=== PATIENT | male | born 1965 | race African-American/Black ===

== ENCOUNTER 2018-07-05 16:47 | Inpatient (IN) | payer MEDICAID ==
[~2018-07-05] VITALS: Ht 185.4 cm; Wt 56.9 kg
[2018-07-05] MEDS ORDERED: SODIUM CHLORIDE 0.9% 1,000 ML IV ONE ×3 (17:38→19:45)
[2018-07-05 17:58] LABS: BG BASE EXCESS 0.4 mmol/L (-2.0-2.0); BG CARBOXYHEMOGLOBIN 5.6 % (0.5-1.5); BG DEOXYHEMOGLOBIN 3.3 % (0.0-5.0); BG FRACTION INSPIRED OXYGEN 21; BG HCO3 ACT 24.2 mmol/L (22.0-26.0); BG METHEMOGLOBIN 0.2 % (0.0-1.5); BG OXYGEN SATURATION 96.5 % (92.0-98.5); BG OXYHEMOGLOBIN 90.9 % (94.0-97.0); BG PCO2 36.6 mmHg (35.0-45.0); BG PH 7.438 (7.350-7.450); BG PO2 82.3 mmHg (75.0-100.0); BG SAMPLE SITE RIGHT BRACHIAL; BG TOTAL HEMOGLOBIN 15.4 g/dL (12.0-18.0); BG VENT MODE ROOM AIR
[2018-07-05] MEDS ORDERED: ASPIRIN 81MG TABLET PO ONE (18:30)
[2018-07-05] MEDS ORDERED: KETOROLAC 15MG/ML VIAL IV ONE (18:30)
[2018-07-05 19:14] LABS: BASOPHILS % 0.5 % (0.0-2.0); EOSINOPHILS % 1.4 % (0.0-5.0); HEMATOCRIT. 43.4 % (42.0-52.0); HEMOGLOBIN. 14.9 g/dL (14.0-18.0); LYMPHOCYTES % 30.5 % (20.0-50.0); MEAN CORPUSCULAR HEMOGLOBIN 31.4 pg (28.0-32.0); MEAN CORPUSCULAR VOLUME 91.4 fL (80.0-94.0); MEAN PLATELET VOLUME 8.6 fl (7.4-10.4); MONOCYTES % 7.5 % (2.0-8.0); NEUTROPHILS % 60.1 % (40.0-76.0); PLATELET 298 x1000/uL (130-400); RED BLOOD CELL COUNT 4.75 mill/uL (4.7-6.1); RED CELL DISTRIBUTION WIDTH 14.2 % (11.6-14.6)
[2018-07-05 19:20] LABS: CHLORIDE 95 mEq/L (98-107)
[2018-07-05 19:22] LABS: INR 1.1; PROTHROMBIN TIME 11.1 sec (9.1-11.1)
[2018-07-05 19:24] LABS: ETHANOL BLOOD < 10 mg/dL
[2018-07-05 19:24] LABS: CLARITY URINE CLEAR (CLEAR); COLOR URINE YELLOW (YELLOW); KETONES URINE NEGATIVE (NEGATIVE); LEUKOCYTE ESTERASE URINE NEGATIVE (NEGATIVE); NITRITE URINE NEGATIVE (NEGATIVE); OCCULT BLOOD URINE NEGATIVE (NEGATIVE); PROTEIN URINE NEGATIVE (NEGATIVE); SPECIFIC GRAVITY URINE 1.037 (1.005-1.030); UROBILINOGEN URINE 0.2 E.U./dL (0.2-1.0)
[2018-07-05 19:25] LABS: PHOSPHORUS 3.8 mg/dL (2.5-4.9)
[2018-07-05 19:29] LABS: CREATINE KINASE 43 IU/L (39-308); CREATINE KINASE MB FRACTION < 1.0 ng/mL (0.5-3.6)
[2018-07-05 19:30] LABS: BETA HYDROXYBUTYRATE 0.2 mMol/L (0.0-0.3)
[2018-07-05 19:51] LABS: *AMPHETAMINES SCREEN URINE NEGATIVE (NEGATIVE); *BARBITURATES SCREEN URINE NEGATIVE (NEGATIVE)
[2018-07-05 19:52] LABS: *BENZODIAZEPINES SCREEN URINE NEGATIVE (NEGATIVE); *COCAINE SCREEN URINE NEGATIVE (NEGATIVE); CANNABINOID URINE SCREEN NEGATIVE (NEGATIVE); METHADONE URINE SCREEN NEGATIVE (NEGATIVE); OPIATES URINE SCREEN NEGATIVE (NEGATIVE); PHENCYCLIDINE URINE SCREEN NEGATIVE (NEGATIVE)
[2018-07-05] MEDS ORDERED: INSULIN REGULAR (HUMULIN R) 300UNITS/3ML SUBCUT ONE (20:15)
[2018-07-05] MEDS ORDERED: DOCUSATE SODIUM 100MG CAPSULE PO PRN (21:00)
[2018-07-05] MEDS ORDERED: ONDANSETRON HCL 4MG/2ML INJ IV PRN (21:00)
[2018-07-05] MEDS ORDERED: ACETAMINOPHEN 325MG TABLET PO PRN (21:00)
[2018-07-05] MEDS ORDERED: MAGNESIUM/ALUMINUM HYDROXIDE/SIMETHICONE 30ML UDC PO PRN (21:00)
[2018-07-05] MEDS ORDERED: HYDROCODONE/ACETAMINOPHEN 5/325MG TABLET PO PRN (21:00)
[2018-07-05] MEDS ORDERED: CLONIDINE 0.1MG TABLET PO PRN (21:00)
[2018-07-05 22:05] VITALS: BP 128/80
[2018-07-05] MEDS ORDERED: DEXTROSE 50% WATER 50ML SYRINGE IV PRN ×2 (22:30→22:45)
[2018-07-05] MEDS: BLOOD SUGAR DIAGNOSTIC STRIP TEST SCH (22:54)
[2018-07-05] MEDS ORDERED: INSULIN GLARGINE UD 100 UNITS/ML SYR SUBCUT SCH (23:00)
[2018-07-05] MEDS: SODIUM CHLORIDE 0.9% 1,000 ML IV SCH (23:03)
[2018-07-05] MEDS: INSULIN LISPRO 100 UNITS/ML SUBCUT SCH (23:04)
[2018-07-05 23:29] VITALS: BP 130/80
[2018-07-06] VITALS: BP 101/67
[2018-07-06] MEDS ORDERED: ALBU05 IH (00:44)
[2018-07-06] MEDS ORDERED: METF-416 MT (00:44)
[2018-07-06] MEDS ORDERED: LEVVL SQ (00:44)
[2018-07-06 01:24] LABS: CHLORIDE 109 mEq/L (98-107)
[2018-07-06 04:00] VITALS: BP 111/57
[2018-07-06] MEDS: INSULIN LISPRO 100 UNITS/ML SUBCUT SCH ×7 (05:50→20:22)
[2018-07-06] MEDS: BLOOD SUGAR DIAGNOSTIC STRIP TEST SCH ×4 (05:50→20:02)
[2018-07-06] MEDS ORDERED: POTASSIUM CHLORIDE 20MEQ TABLET SR PO NR (06:45)
[2018-07-06] MEDS: SODIUM CHLORIDE 0.9% 1,000 ML IV SCH ×2 (06:48→17:59)
[2018-07-06 06:57] LABS: BASOPHILS % 0.4 % (0.0-2.0); EOSINOPHILS % 2.1 % (0.0-5.0); HEMATOCRIT. 38.8 % (42.0-52.0); HEMOGLOBIN. 13.1 g/dL (14.0-18.0); LYMPHOCYTES % 29.5 % (20.0-50.0); MEAN CORPUSCULAR HEMOGLOBIN 30.7 pg (28.0-32.0); MEAN CORPUSCULAR VOLUME 90.8 fL (80.0-94.0); MEAN PLATELET VOLUME 8.3 fl (7.4-10.4); MONOCYTES % 7.2 % (2.0-8.0); NEUTROPHILS % 60.8 % (40.0-76.0); PLATELET 277 x1000/uL (130-400); RED BLOOD CELL COUNT 4.28 mill/uL (4.7-6.1)
[2018-07-06 07:20] LABS: LDL CHOLESTEROL 87 mg/dL (5-100)
[2018-07-06 07:22] LABS: HDL CHOLESTEROL 38 mg/dL (40-59)
[2018-07-06 08:00] VITALS: BP 112/76
[2018-07-06] MEDS ORDERED: MAGNESIUM 1 G PREMIX 100 ML IV NR (08:00)
[2018-07-06] MEDS: IPRATROPIUM/ALBUTEROL 0.5-3(2.5)MG/3ML NEB INH PRN ×2 (08:12→14:19)
[2018-07-06] MEDS: ASPIRIN 81MG EC TABLET PO SCH (09:03)
[2018-07-06] MEDS: ENOXAPARIN 40MG/0.4ML SYR SUBCUT SCH (09:03)
[2018-07-06 12:00] VITALS: BP 112/80
[2018-07-06] MEDS: BUDESONIDE 0.5MG/2ML NEB HHN SCH (14:09)
[2018-07-06 16:00] VITALS: BP 117/58
[2018-07-06 20:00] VITALS: BP 110/58
[2018-07-06] MEDS ORDERED: INSULIN GLARGINE UD 100 UNITS/ML SYR SUBCUT SCH (23:30)
[2018-07-07] VITALS: BP 112/60
[2018-07-07 04:00] VITALS: BP 125/70
[2018-07-07] MEDS: SODIUM CHLORIDE 0.9% 1,000 ML IV SCH ×2 (05:59→12:57)
[2018-07-07] MEDS: BLOOD SUGAR DIAGNOSTIC STRIP TEST SCH ×2 (06:06→12:27)
[2018-07-07] MEDS: INSULIN LISPRO 100 UNITS/ML SUBCUT SCH ×4 (06:23→12:56)
[2018-07-07 07:34] LABS: BASOPHILS % 0.4 % (0.0-2.0); EOSINOPHILS % 2.4 % (0.0-5.0); HEMATOCRIT. 38.6 % (42.0-52.0); LYMPHOCYTES % 27.5 % (20.0-50.0); MEAN PLATELET VOLUME 8.4 fl (7.4-10.4); MONOCYTES % 7.2 % (2.0-8.0); NEUTROPHILS % 62.5 % (40.0-76.0); PLATELET 270 x1000/uL (130-400); RED CELL DISTRIBUTION WIDTH 14.8 % (11.6-14.6)
[2018-07-07 07:47] LABS: CHLORIDE 108 mEq/L (98-107)
[2018-07-07 08:00] VITALS: BP 111/76
[2018-07-07] MEDS: BUDESONIDE 0.5MG/2ML NEB HHN SCH (08:35)
[2018-07-07] MEDS: ENOXAPARIN 40MG/0.4ML SYR SUBCUT SCH (09:25)
[2018-07-07] MEDS: ASPIRIN 81MG EC TABLET PO SCH (09:25)
[2018-07-07 12:00] VITALS: BP_SYST 123; BP_SYST 124; BP_DIAS 86; BP_DIAS 90
== END 2018-07-07 13:35 | disposition home or self-care (01) | DRG 48 ==
LOC: ER 16:47 → 5WST 20:34 → EDBEDREQ 20:35 → EDBEDREQTM 20:35 → ENRESERV 20:38
PROVIDERS: ADMIT Internal Medicine; ATTEND Internal Medicine
DX: G90.8 Other disorders of autonomic nervous system (principal); E44.0 Moderate protein-calorie malnutrition; E87.8 Other disorders of electrolyte and fluid balance, not elsewhere classified; E11.65 Type 2 diabetes mellitus with hyperglycemia; E87.1 Hypo-osmolality and hyponatremia; F03.90 Unspecified dementia, unspecified severity, without behavioral disturbance, psychotic disturbance, mood disturbance, and anxiety; M94.0 Chondrocostal junction syndrome [Tietze]; F17.210 Nicotine dependence, cigarettes, uncomplicated; R74.0 Nonspecific elevation of levels of transaminase and lactic acid dehydrogenase [LDH]; I10 Essential (primary) hypertension; I49.3 Ventricular premature depolarization; J44.9 Chronic obstructive pulmonary disease, unspecified; Z68.1 Body mass index [BMI] 19.9 or less, adult; Z71.6 Tobacco abuse counseling
CPT/HCPCS: 36415; 36600; 71045; 80048; 80061; 80305; 82010; 82375; 82550; 82553; 82805; 82962; 83036; 83735; 83880; 84100; 84443; 84484; 93005; 93306; 93970; 94640; 96361; 96374; 99291; G0482; J1650; J1815; J1885; J3475; J7030; J7620; J7626

== ENCOUNTER 2019-01-21 11:25 | Emergency (ER) | payer MEDICAID ==
[~2019-01-21] VITALS: Ht 185.4 cm; Wt 65.0 kg
[~2019-01-21 11:25] MED LIST: ALBU05 IH; METF-416 MT
[2019-01-21] MEDS ORDERED: SODIUM CHLORIDE 0.9% 1,000 ML IV ONE ×2 (11:32→13:15)
[2019-01-21 12:04] LABS: BASOPHILS % 0.9 % (0.0-2.0); EOSINOPHILS % 2.4 % (0.0-5.0); HEMATOCRIT. 45.8 % (42.0-52.0); HEMOGLOBIN. 15.7 g/dL (14.0-18.0); LYMPHOCYTES % 25.7 % (20.0-50.0); MEAN CORPUSCULAR HEMOGLOBIN 31.6 pg (28.0-32.0); MEAN CORPUSCULAR VOLUME 92.3 fL (80.0-94.0); MEAN PLATELET VOLUME 8.2 fl (7.4-10.4); MONOCYTES % 6.3 % (2.0-8.0); NEUTROPHILS % 64.7 % (40.0-76.0); PLATELET 222 x1000/uL (130-400); RED BLOOD CELL COUNT 4.96 mill/uL (4.7-6.1); RED CELL DISTRIBUTION WIDTH 13.9 % (11.6-14.6)
[2019-01-21 12:12] LABS: CHLORIDE 105 mEq/L (98-107); INR 1.1; PROTHROMBIN TIME 11.3 sec (9.6-11.0)
[2019-01-21] MEDS ORDERED: INSULIN REGULAR (HUMULIN R) 300UNITS/3ML SUBCUT ONE (13:15)
[2019-01-21] MEDS ORDERED: SODIUM CHLORIDE 0.9% 1,000 ML IV NR (14:45)
[2019-01-21 16:03] VITALS: BP 120/72
== END 2019-01-21 16:28 | disposition home or self-care (01) ==
LOC: ER 11:57
DX: E11.65 Type 2 diabetes mellitus with hyperglycemia (principal); E88.09 Other disorders of plasma-protein metabolism, not elsewhere classified; I95.9 Hypotension, unspecified; E86.0 Dehydration; R74.0 Nonspecific elevation of levels of transaminase and lactic acid dehydrogenase [LDH]; R07.9 Chest pain, unspecified; E46 Unspecified protein-calorie malnutrition; J45.909 Unspecified asthma, uncomplicated; Z79.899 Other long term (current) drug therapy
CPT/HCPCS: 36415; 80053; 82962; 83690; 84484; 85025; 85610; 93005; 96360; 96361; 96372; 99284; J1815; J7030

== ENCOUNTER 2020-08-02 15:36 | Emergency (ER) | payer MEDICAID ==
[~2020-08-02] VITALS: Ht 175.3 cm; Wt 61.0 kg
[2020-08-02] MEDS ORDERED: INSULIN REGULAR (HUMULIN R) 300UNITS/3ML VIAL IV ONE (16:30)
[2020-08-02] MEDS ORDERED: MECLIZINE 12.5MG TABLET PO ONE (16:30)
[2020-08-02] MEDS ORDERED: SODIUM CHLORIDE 0.9% 1,000 ML IV ONE ×2 (16:30→18:00)
[2020-08-02 17:00] LABS: BASOPHILS % 0.5 % (0.0-2.0); EOSINOPHILS % 0.4 % (0.0-5.0); HEMATOCRIT. 48.3 % (42.0-52.0); HEMOGLOBIN. 15.7 g/dL (14.0-18.0); LYMPHOCYTES % 15.7 % (20.0-50.0); MEAN CORPUSCULAR HEMOGLOBIN 28.9 pg (28.0-32.0); MEAN CORPUSCULAR VOLUME 88.8 fL (80.0-94.0); MEAN PLATELET VOLUME 7.8 fl (7.4-10.4); MONOCYTES % 5.5 % (2.0-8.0); NEUTROPHILS % 77.9 % (40.0-76.0); PLATELET 319 x1000/uL (130-400); RED BLOOD CELL COUNT 5.43 mill/uL (4.7-6.1); RED CELL DISTRIBUTION WIDTH 13.5 % (11.6-14.6)
[2020-08-02 17:01] LABS: CHLORIDE 100 mEq/L (98-107)
[2020-08-02 17:09] LABS: BETA HYDROXYBUTYRATE 0.3 mMol/L (0.0-0.3)
[2020-08-02 20:12] VITALS: BP 105/75
== END 2020-08-02 20:40 | disposition home or self-care (01) ==
LOC: ER 15:36
DX: E11.65 Type 2 diabetes mellitus with hyperglycemia (principal); E86.0 Dehydration; I10 Essential (primary) hypertension; J45.909 Unspecified asthma, uncomplicated; Z79.84 Long term (current) use of oral hypoglycemic drugs
CPT/HCPCS: 36415; 71045; 80053; 82010; 82962; 84484; 85025; 96374; 99284; J1815; J7030; J8597

== ENCOUNTER 2021-03-29 20:51 | Inpatient (IN) | payer MEDICAID, OTHER ==
[~2021-03-29] VITALS: Ht 175.3 cm; Wt 68.0 kg
[2021-03-29] MEDS ORDERED: ASPIRIN 81MG TABLET PO ONE (21:15)
[2021-03-29 21:36] LABS: BASOPHILS % 0.4 % (0.0-2.0); EOSINOPHILS % 4.4 % (0.0-5.0); HEMATOCRIT. 32.3 % (42.0-52.0); HEMOGLOBIN. 10.9 g/dL (14.0-18.0); LYMPHOCYTES % 26.1 % (20.0-50.0); MEAN CORPUSCULAR HEMOGLOBIN 29.6 pg (28.0-32.0); MEAN CORPUSCULAR VOLUME 87.5 fL (80.0-94.0); MEAN PLATELET VOLUME 7.9 fl (7.4-10.4); MONOCYTES % 8.6 % (2.0-8.0); NEUTROPHILS % 60.5 % (40.0-76.0); PLATELET 291 x1000/uL (130-400); RED BLOOD CELL COUNT 3.69 mill/uL (4.7-6.1); RED CELL DISTRIBUTION WIDTH 14.4 % (11.6-14.6)
[2021-03-29 21:42] LABS: CHLORIDE 100 mEq/L (98-107)
[2021-03-29] MEDS ORDERED: SODIUM CHLORIDE 0.9% 1,000 ML IV ONE ×2 (22:30)
[2021-03-29] MEDS ORDERED: INSULIN REGULAR (HUMULIN R) 300UNITS/3ML VIAL SUBCUT ONE (22:30)
[2021-03-30] MEDS ORDERED: DEXTROSE 50% WATER 50ML SYRINGE IV PRN (04:45)
[2021-03-30] MEDS: BLOOD SUGAR DIAGNOSTIC STRIP TEST SCH ×4 (05:07→16:36)
[2021-03-30] MEDS: INSULIN LISPRO (HIGH DOSE) 100 UNITS/ML SUBCUT SCH ×4 (05:16→17:17)
[2021-03-30] MEDS: HYDROCODONE/ACETAMINOPHEN 5/325MG TABLET PO PRN ×2 (05:29→09:57)
[2021-03-30] MEDS ORDERED: INSU100I32 SQ (14:37)
[2021-03-30] MEDS ORDERED: Flomax (14:37)
[2021-03-30] MEDS ORDERED: INSU100I28 SQ (14:37)
[2021-03-30 14:40] VITALS: BP 105/74
[2021-03-30] MEDS ORDERED: IPRATROPIUM/ALBUTEROL 0.5-3(2.5)MG/3ML NEB HHN PRN (15:15)
[2021-03-30] MEDS ORDERED: NITROGLYCERIN 0.4MG TABLET SL SL PRN (15:15)
[2021-03-30] MEDS ORDERED: ACETAMINOPHEN 325MG TABLET PO PRN ×2 (15:15)
[2021-03-30] MEDS ORDERED: MORPHINE SULFATE 2 MG/ML CPJ (NOT FOR IM USE) IV PRN (15:15)
[2021-03-30] MEDS ORDERED: LORAZEPAM 0.5MG TABLET PO PRN (15:15)
[2021-03-30] MEDS ORDERED: CLONIDINE 0.1MG TABLET PO PRN (15:15)
[2021-03-30] MEDS ORDERED: DOCUSATE SODIUM 100MG CAPSULE PO PRN (15:15)
[2021-03-30] MEDS ORDERED: HYDROCODONE/ACETAMINOPHEN 5/325MG TABLET PO PRN (15:15)
[2021-03-30 16:00] VITALS: BP_SYST 105; BP_SYST 127; BP_DIAS 74; BP_DIAS 90
[2021-03-30] MEDS ORDERED: AMLODIPINE 5MG TABLET PO SCH (16:30)
[2021-03-30 16:40] LABS: TOTAL IRON BINDING CAPACITY 289 ug/dL (250-450)
[2021-03-30] MEDS ORDERED: INSULIN LISPRO 100 UNITS/ML SUBCUT SCH (16:40)
[2021-03-30 16:42] LABS: CREATINE KINASE 75 IU/L (39-308)
[2021-03-30 16:43] LABS: CREATINE KINASE MB FRACTION 2.6 ng/mL (0.5-3.6)
[2021-03-30 17:06] LABS: FOLIC ACID (FOLATE) SERUM > 20.00 ng/mL (>5.38)
[2021-03-30 17:09] LABS: HEPATITIS B SURFACE ANTIGEN NEGATIVE
[2021-03-30 17:13] LABS: VITAMIN B12 SERUM 422 pg/mL (211-911)
[2021-03-30 17:16] LABS: FERRITIN 32 ng/mL (22-322)
[2021-03-30 19:41] LABS: *AMPHETAMINES SCREEN URINE NEGATIVE (NEGATIVE); *BARBITURATES SCREEN URINE NEGATIVE (NEGATIVE); *BENZODIAZEPINES SCREEN URINE NEGATIVE (NEGATIVE); *COCAINE SCREEN URINE NEGATIVE (NEGATIVE)
[2021-03-30 19:42] LABS: CANNABINOID URINE SCREEN NEGATIVE (NEGATIVE); METHADONE URINE SCREEN NEGATIVE (NEGATIVE); OPIATES URINE SCREEN PRESUMTIVE POSITIVE (NEGATIVE); PHENCYCLIDINE URINE SCREEN NEGATIVE (NEGATIVE)
[2021-03-30] MEDS ORDERED: INSULIN GLARGINE UD 100 UNITS/ML SYR SUBCUT SCH (22:00)
== END 2021-03-30 19:20 | disposition left against medical advice (07) | DRG 198 ==
LOC: ER 21:32 → ENRESERV 03-30 12:11 → 7EST 03-30 14:35
PROVIDERS: ADMIT Internal Medicine; ATTEND Internal Medicine
DX: I20.0 Unstable angina (principal); E43 Unspecified severe protein-calorie malnutrition; C34.90 Malignant neoplasm of unspecified part of unspecified bronchus or lung; E87.1 Hypo-osmolality and hyponatremia; D64.9 Anemia, unspecified; E11.65 Type 2 diabetes mellitus with hyperglycemia; I16.0 Hypertensive urgency; F17.210 Nicotine dependence, cigarettes, uncomplicated; I10 Essential (primary) hypertension; R74.01 Elevation of levels of liver transaminase levels; J45.909 Unspecified asthma, uncomplicated; Z53.29 Procedure and treatment not carried out because of patient's decision for other reasons; I25.2 Old myocardial infarction; Z79.4 Long term (current) use of insulin; Z85.118 Personal history of other malignant neoplasm of bronchus and lung; Z71.6 Tobacco abuse counseling; Z71.3 Dietary counseling and surveillance; Z68.22 Body mass index [BMI] 22.0-22.9, adult
CPT/HCPCS: 36415; 71045; 80053; 80061; 80305; 82010; 82550; 82553; 82607; 82728; 82746; 82962; 83036; 83540; 83550; 83880; 84443; 84484; 85025; 85379; 86705; 86709; 86803; 87340; 93005; 99291; J1815; J7030

== ENCOUNTER 2023-12-14 08:02 | Inpatient (IN) | payer MEDICAID ==
[2023-12-14] VITALS (22 sets, daily range): BP systolic 108–198; BP diastolic 75–115; PULSE 72–79; RESP 13–30; TEMP 95
[~2023-12-14] VITALS: Ht 170.2 cm; Wt 73.9 kg
[~2023-12-14 08:02] MED LIST changes: +Flomax; +INSU100I28 SQ; +INSU100I32 SQ; +LEVO-65 MT
[2023-12-14] MEDS: SODIUM CHLORIDE 0.9% 1000ML BAG (SEPSIS BOLUS) IV ONE (09:11)
[2023-12-14 09:44] LABS: BASOPHILS % 0.4 % (0.0-2.0); EOSINOPHILS % 0.7 % (0.0-5.0); HEMATOCRIT. 30.2 % (42.0-52.0); HEMOGLOBIN. 9.5 g/dL (14.0-18.0); LYMPHOCYTES % 8.9 % (20.0-50.0); MEAN CORPUSCULAR HGB CONC 31.4 g/dL (31.0-37.0); MEAN CORPUSCULAR VOLUME 98.6 fL (80.0-94.0); MEAN PLATELET VOLUME 9.5 fl (7.4-10.4); MONOCYTES % 7.7 % (2.0-8.0); NEUTROPHILS % 82.3 % (40.0-76.0); PLATELET 91 x1000/uL (130-400); RED BLOOD CELL COUNT 3.06 mill/uL (4.7-6.1); RED CELL DISTRIBUTION WIDTH 17.6 % (11.6-14.6); WHITE BLOOD COUNT 6.6 x1000/uL (4.5-11.0)
[2023-12-14 09:48] LABS: BG CARBOXYHEMOGLOBIN 0.7 % (0.5-1.5); BG FRACTION INSPIRED OXYGEN 21; BG HCO3 ACT 14.7 mmol/L (22.0-26.0); BG METHEMOGLOBIN 0.4 % (0.0-1.5); BG OXYHEMOGLOBIN 95.9 % (94.0-97.0); BG PCO2 32.1 mmHg (35.0-45.0); BG PH 7.278 (7.350-7.450); BG PO2 104.3 mmHg (75.0-100.0); BG SAMPLE SITE RIGHT RADIAL; BG TOTAL HEMOGLOBIN 9.5 g/dL (12.0-18.0); BG VENT MODE ROOM AIR
[2023-12-14] MEDS: ONDANSETRON HCL 4MG/2ML INJ IV STA (10:14)
[2023-12-14] MEDS: CEFTRIAXONE 1GM/50ML 50 ML IV ONE (10:14)
[2023-12-14 10:34] LABS: CHLORIDE 108 mEq/L (98-107); SODIUM 133 mEq/L (136-145)
[2023-12-14 10:38] LABS: CALCIUM 8.1 mg/dL (8.7-10.4); CARBON DIOXIDE 15 mEq/L (21-32)
[2023-12-14 10:43] LABS: UREA NITROGEN BLOOD 32 mg/dL (9-23)
[2023-12-14 10:45] LABS: CREATINE KINASE 176 IU/L (46-171)
[2023-12-14 10:59] LABS: CREATININE 2.1 mg/dL (0.6-1.3); ETHANOL BLOOD < 10 mg/dL (<10)
[2023-12-14 11:11] LABS: INR 1.1; PROTHROMBIN TIME 11.8 sec (9.6-11.0)
[2023-12-14 11:15] LABS: GLUCOSE 710 mg/dL (70-105); TROPONIN I HIGH SENSITIVITY 168 ng/L (3.0-53)
[2023-12-14 11:29] LABS: BETA HYDROXYBUTYRATE 0.2 mMol/L (0.0-0.3)
[2023-12-14 11:37] LABS: LACTIC ACID 4.4 mmol/L (0.4-2.0)
[2023-12-14] MEDS: INSULIN REGULAR (HUMULIN R) 300UNITS/3ML VIAL IV ONE (12:00)
[2023-12-14] MEDS ORDERED: DEXTROSE 50% WATER 50ML SYRINGE IV PRN ×2 (12:00→16:45)
[2023-12-14] MEDS ORDERED: INSULIN REGULAR (DRIP) 100 UNITS in SODIUM CHLORIDE 0.9% 99 ML IV SCH ×2 (12:00→18:00)
[2023-12-14] MEDS: BLOOD SUGAR DIAGNOSTIC STRIP TEST SCH ×2 (13:00→16:58)
[2023-12-14] MEDS: SODIUM CHLORIDE 0.9% 1,000 ML IV ONE (13:00)
[2023-12-14] MEDS: SODIUM BICARBONATE 8.4% 1 MEQ/ML 50ML SYR IV ONE (13:15)
[2023-12-14] MEDS: ASPIRIN 325MG TABLET PO ONE (13:25)
[2023-12-14] MEDS: INSULIN REGULAR 100U/100ML PMX 100 ML IV SCH ×2 (13:33→22:05)
[2023-12-14] MEDS ORDERED: BLOOD SUGAR DIAGNOSTIC STRIP TEST SCH (16:45)
[2023-12-14] MEDS ORDERED: POTASSIUM CHLORIDE 40 MEQ in SODIUM CHLORIDE 0.9% 230 ML IV PRN (16:45)
[2023-12-14] MEDS ORDERED: KCL 20MEQ/100ML PREMIX 100 ML IV PRN (16:45)
[2023-12-14] MEDS: HYDRALAZINE 20MG/ML VIAL IV PRN (16:57)
[2023-12-14] MEDS: SODIUM CHLORIDE 0.9% 1,000 ML IV SCH (16:58)
[2023-12-14] MEDS: PANTOPRAZOLE SODIUM 40 MG/VIAL IV SCH (16:58)
[2023-12-14] MEDS: MORPHINE SULFATE 2 MG/ML CPJ (NOT FOR IM USE) IV NR (18:25)
[2023-12-14 18:40] LABS: POTASSIUM 4.5 mEq/L (3.5-5.1)
[2023-12-14 18:41] LABS: CALCIUM 7.4 mg/dL (8.7-10.4)
[2023-12-14 18:46] LABS: CREATININE 1.7 mg/dL (0.6-1.3)
[2023-12-14] MEDS: DEXT 5%/0.9% NACL 1,000 ML IV SCH (20:00)
[2023-12-14] MEDS ORDERED: NALOXONE HCL 0.4MG/ML VIAL IV PRN (20:45)
[2023-12-14 20:54] LABS: PHOSPHORUS 3.9 mg/dL (2.5-4.9)
[2023-12-14] MEDS: HYDROCODONE/ACETAMINOPHEN 10/325MG TABLET PO PRN (21:06)
[2023-12-14] MEDS: MAGNESIUM 2 G PREMIX 100 ML IV PRN (23:19)
[2023-12-14 23:20] LABS: POTASSIUM 4.1 mEq/L (3.5-5.1)
[2023-12-14 23:21] LABS: CALCIUM 7.5 mg/dL (8.7-10.4)
[2023-12-14 23:26] LABS: CREATININE 1.6 mg/dL (0.6-1.3)
[2023-12-15] VITALS (90 sets, daily range): BP systolic 64–127; BP diastolic 51–93; PULSE 70–149; RESP 11–28; TEMP 97.5–98.2
[2023-12-15] MEDS: SODIUM CHLORIDE 0.9% 1,000 ML IV SCH (00:30)
[2023-12-15 00:49] LABS: BASOPHILS % 0.4 % (0.0-2.0); EOSINOPHILS % 3.1 % (0.0-5.0); HEMATOCRIT. 23.2 % (42.0-52.0); HEMOGLOBIN. 7.6 g/dL (14.0-18.0); LYMPHOCYTES % 19.2 % (20.0-50.0); MEAN CORPUSCULAR HEMOGLOBIN 31.3 pg (28.0-32.0); MEAN CORPUSCULAR HGB CONC 32.9 g/dL (31.0-37.0); MEAN CORPUSCULAR VOLUME 94.9 fL (80.0-94.0); MEAN PLATELET VOLUME 9.7 fl (7.4-10.4); MONOCYTES % 10.9 % (2.0-8.0); NEUTROPHILS % 66.4 % (40.0-76.0); PLATELET 86 x1000/uL (130-400); RED BLOOD CELL COUNT 2.44 mill/uL (4.7-6.1); RED CELL DISTRIBUTION WIDTH 17.3 % (11.6-14.6); WHITE BLOOD COUNT 5.7 x1000/uL (4.5-11.0)
[2023-12-15 00:54] LABS: BG BASE EXCESS -8.1 mmol/L (-2.0-2.0); BG CARBOXYHEMOGLOBIN 0.1 % (0.5-1.5); BG DEOXYHEMOGLOBIN 11.1 % (0.0-5.0); BG HCO3 ACT 17.4 mmol/L (22.0-26.0); BG METHEMOGLOBIN 0.4 % (0.0-1.5); BG OXYGEN SATURATION 88.8 % (92.0-98.5); BG OXYHEMOGLOBIN 88.4 % (94.0-97.0); BG PCO2 35.2 mmHg (35.0-45.0); BG PH 7.311 (7.350-7.450); BG PO2 55.6 mmHg (75.0-100.0); BG TOTAL HEMOGLOBIN 8.4 g/dL (12.0-18.0)
[2023-12-15] MEDS: CALCIUM GLUCONATE 1GM PREMIX 50 ML IV NR (01:03)
[2023-12-15] MEDS: PHENYLEPHRINE 50MG/250ML PMX 250 ML IV PRN (01:05)
[2023-12-15] MEDS: INSULIN GLARGINE 100 UNITS/ML SUBCUT NR (01:12)
[2023-12-15] MEDS ORDERED: NOREPINEPHRINE 8MG/250ML PMX 250 ML IV PRN (01:15)
[2023-12-15] MEDS: PANTOPRAZOLE SODIUM 40 MG/VIAL IV NR (01:33)
[2023-12-15] MEDS ORDERED: DEXTROSE 50% WATER 50ML SYRINGE IV PRN (02:15)
[2023-12-15] MEDS: DEXTROSE 50% WATER 50ML SYRINGE IV PRN (02:29)
[2023-12-15 04:12] LABS: CHLORIDE 115 mEq/L (98-107); POTASSIUM 4.3 mEq/L (3.5-5.1); SODIUM 141 mEq/L (136-145)
[2023-12-15 04:13] LABS: CARBON DIOXIDE 18 mEq/L (21-32)
[2023-12-15 04:18] LABS: CREATININE 1.6 mg/dL (0.6-1.3); GLUCOSE 67 mg/dL (70-105)
[2023-12-15 04:19] LABS: UREA NITROGEN BLOOD 27 mg/dL (9-23)
[2023-12-15 04:21] LABS: PHOSPHORUS 3.6 mg/dL (2.5-4.9)
[2023-12-15] MEDS: INSULIN LISPRO 100 UNITS/ML SUBCUT SCH (05:57)
[2023-12-15] MEDS: BLOOD SUGAR DIAGNOSTIC STRIP TEST SCH ×2 (05:57→18:00)
[2023-12-15 09:39] LABS: BG BASE EXCESS -9.1 mmol/L (-2.0-2.0); BG CARBOXYHEMOGLOBIN 0.3 % (0.5-1.5); BG DEOXYHEMOGLOBIN 1.3 % (0.0-5.0); BG FRACTION INSPIRED OXYGEN 40; BG HCO3 ACT 16.8 mmol/L (22.0-26.0); BG METHEMOGLOBIN 0.4 % (0.0-1.5); BG OXYGEN SATURATION 98.7 % (92.0-98.5); BG PCO2 36.2 mmHg (35.0-45.0); BG PH 7.284 (7.350-7.450); BG PO2 172.3 mmHg (75.0-100.0); BG SAMPLE SITE RIGHT RADIAL; BG TOTAL HEMOGLOBIN 10.3 g/dL (12.0-18.0); BG VENT MODE NASAL CANNULA
[2023-12-15 10:25] LABS: BASOPHILS % 0.5 % (0.0-2.0); EOSINOPHILS % 3.1 % (0.0-5.0); HEMATOCRIT. 32.1 % (42.0-52.0); MEAN CORPUSCULAR HEMOGLOBIN 31.1 pg (28.0-32.0); MEAN CORPUSCULAR HGB CONC 32.2 g/dL (31.0-37.0); MEAN CORPUSCULAR VOLUME 96.6 fL (80.0-94.0); MEAN PLATELET VOLUME 9.9 fl (7.4-10.4); MONOCYTES % 9.7 % (2.0-8.0); NEUTROPHILS % 71.7 % (40.0-76.0); PLATELET 108 x1000/uL (130-400); RED BLOOD CELL COUNT 3.33 mill/uL (4.7-6.1); RED CELL DISTRIBUTION WIDTH 17.7 % (11.6-14.6); WHITE BLOOD COUNT 8.6 x1000/uL (4.5-11.0)
[2023-12-15 10:28] LABS: HEMOGLOBIN. 10.4 g/dL (14.0-18.0)
[2023-12-15] MEDS ORDERED: DOCUSATE SODIUM 100MG CAPSULE PO PRN (10:45)
[2023-12-15] MEDS ORDERED: ACETAMINOPHEN 325MG TABLET PO PRN (10:45)
[2023-12-15] MEDS: INSULIN GLARGINE 100 UNITS/ML SUBCUT SCH (12:00)
[2023-12-15] MEDS: PIPERACILLIN/TAZO 3.375G/50ML 50 ML IV SCH (13:07)
[2023-12-15] MEDS: SODIUM CHLORIDE 0.45% 1,000 ML IV SCH (13:08)
[2023-12-15] MEDS ORDERED: PIPERACILLIN/TAZO 3.375G/50ML 50 ML IV SCH (14:00)
[2023-12-15 16:32] LABS: CLARITY URINE TURBID (CLEAR); COLOR URINE YELLOW (YELLOW); GLUCOSE URINE NEGATIVE (NEGATIVE); KETONES URINE NEGATIVE (NEGATIVE); LEUKOCYTE ESTERASE URINE 3+ (NEGATIVE); NITRITE URINE NEGATIVE (NEGATIVE); OCCULT BLOOD URINE 2+ (NEGATIVE); PH URINE 5.5 (4.5-8.0); PROTEIN URINE 3+ (NEGATIVE); SPECIFIC GRAVITY URINE 1.015 (1.005-1.030); UROBILINOGEN URINE 0.2 E.U./dL (0.2-1.0)
[2023-12-15 16:33] LABS: *AMPHETAMINES SCREEN URINE NEGATIVE (NEGATIVE); *BARBITURATES SCREEN URINE NEGATIVE (NEGATIVE); *BENZODIAZEPINES SCREEN URINE NEGATIVE (NEGATIVE); *COCAINE SCREEN URINE NEGATIVE (NEGATIVE); METHADONE URINE SCREEN NEGATIVE (NEGATIVE)
[2023-12-15 16:34] LABS: IRON 58 ug/dL (65-175)
[2023-12-15 16:34] LABS: CANNABINOID URINE SCREEN NEGATIVE (NEGATIVE); ECSTASY MDMA SCREEN URINE NEGATIVE (NEGATIVE); OPIATES URINE SCREEN PRESUMPTIVE POSITIVE (NEGATIVE); PHENCYCLIDINE URINE SCREEN NEGATIVE (NEGATIVE)
[2023-12-15 16:35] LABS: TRIGLYCERIDE 52 mg/dL (0-150)
[2023-12-15 16:36] LABS: LDL CHOLESTEROL 59 mg/dL (5-100)
[2023-12-15 16:37] LABS: CHOLESTEROL 142 mg/dL (<200); HDL CHOLESTEROL 72 mg/dL (>55); TOTAL IRON BINDING CAPACITY 134 ug/dl (250-425)
[2023-12-15 16:39] LABS: T4 FREE 1.13 ng/dL (0.89-1.76); THYROID STIMULATING HORMONE 1.77 uIU/mL (0.55-4.78)
[2023-12-15 16:56] LABS: SQUAMOUS EPITHELIAL CELL URINE FEW /lpf (RARE/1+); WBC URINE TNTC /hpf (0-2)
[2023-12-15 16:57] LABS: BACTERIA URINE 3+; YEAST URINE 2+
[2023-12-15 17:41] LABS: CREATINE KINASE MB FRACTION 9.6 ng/mL (0.5-3.6)
[2023-12-15] MEDS: DEXT 5%/0.45% NACL 1000ML 1,000 ML IV SCH (17:42)
[2023-12-15 17:47] LABS: TRIOIODOTHYRONINE TOTAL 0.72 ng/ml (0.60-1.81)
[2023-12-15 17:48] LABS: FERRITIN 143 ng/mL (22-322)
[2023-12-15 17:49] LABS: FOLIC ACID (FOLATE) SERUM 8.58 ng/mL (>5.38); VITAMIN B12 SERUM 489 pg/mL (211-911)
[2023-12-15 23:52] LABS: CREATINE KINASE MB FRACTION 6.1 ng/mL (0.5-3.6)
[2023-12-16] VITALS (42 sets, daily range): BP systolic 115–149; BP diastolic 75–103; PULSE 69–84; RESP 11–19; TEMP 97.1–98.4; O2SAT 97–99
[2023-12-16] MEDS ORDERED: METOPROLOL SUCCINATE 50MG ER TABLET PO SCH (02:00)
[2023-12-16 05:17] LABS: BASOPHILS % 0.2 % (0.0-2.0); EOSINOPHILS % 1.8 % (0.0-5.0); HEMATOCRIT. 25.9 % (42.0-52.0); HEMOGLOBIN. 8.6 g/dL (14.0-18.0); LYMPHOCYTES % 16.8 % (20.0-50.0); MEAN CORPUSCULAR HEMOGLOBIN 31.3 pg (28.0-32.0); MEAN CORPUSCULAR HGB CONC 33.2 g/dL (31.0-37.0); MEAN CORPUSCULAR VOLUME 94.5 fL (80.0-94.0); MEAN PLATELET VOLUME 9.7 fl (7.4-10.4); MONOCYTES % 9.3 % (2.0-8.0); NEUTROPHILS % 71.9 % (40.0-76.0); PLATELET 87 x1000/uL (130-400); RED BLOOD CELL COUNT 2.74 mill/uL (4.7-6.1); RED CELL DISTRIBUTION WIDTH 17.1 % (11.6-14.6); WHITE BLOOD COUNT 5.3 x1000/uL (4.5-11.0)
[2023-12-16 05:27] LABS: POTASSIUM 5.6 mEq/L (3.5-5.1)
[2023-12-16 05:28] LABS: CALCIUM 8.1 mg/dL (8.7-10.4)
[2023-12-16 05:58] LABS: CREATININE 2.1 mg/dL (0.6-1.3)
[2023-12-16] MEDS: ENOXAPARIN 60MG/0.6ML SYR SUBCUT SCH (06:29)
[2023-12-16] MEDS: ONDANSETRON HCL 4MG/2ML INJ IV PRN (08:06)
[2023-12-16] MEDS ORDERED: ENOXAPARIN 60MG/0.6ML SYR SUBCUT SCH (09:00)
[2023-12-16] MEDS: METOPROLOL SUCCINATE 25MG ER TABLET PO SCH (09:00)
[2023-12-16] MEDS: ASPIRIN 81MG TABLET PO SCH (09:24)
[2023-12-16] MEDS: SODIUM POLYSTYRENE SULFONATE 15 G/60 ML BOT PO NR (11:00)
[2023-12-16] MEDS ORDERED: PHENYLEPHRINE 50 MG in DEXTROSE 5% WATER 250 ML IV PRN (13:00)
[2023-12-16] MEDS: CITRIC ACID/SODIUM CITRATE SOLN 30ML UDC PO SCH (13:00)
[2023-12-16] MEDS: ALBUTEROL (0.5%) 2.5MG/0.5ML NEB HHN NR (15:42)
[2023-12-16] MEDS: ATORVASTATIN CALCIUM 40MG TABLET PO SCH (20:15)
[2023-12-16] MEDS: DEXT 5%/0.45% NACL 1000ML 1,000 ML IV SCH (21:19)
[2023-12-16] MEDS: IPRATROPIUM/ALBUTEROL 0.5-3(2.5)MG/3ML NEB HHN PRN (22:01)
[2023-12-17] VITALS (9 sets, daily range): BP systolic 129–148; BP diastolic 72–95; PULSE 72–83; RESP 15–20; TEMP 97–97.9; O2SAT 94–98
[2023-12-17] MEDS ORDERED: ENOXAPARIN 40MG/0.4ML SYR SUBCUT SCH (17:00)
[2023-12-17 18:32] LABS: HEMATOCRIT. 26.5 % (42.0-52.0); HEMOGLOBIN. 8.6 g/dL (14.0-18.0); MEAN CORPUSCULAR HEMOGLOBIN 31.5 pg (28.0-32.0); MEAN CORPUSCULAR HGB CONC 32.6 g/dL (31.0-37.0); MEAN CORPUSCULAR VOLUME 96.6 fL (80.0-94.0); MEAN PLATELET VOLUME 9.4 fl (7.4-10.4); PLATELET 98 x1000/uL (130-400); RED BLOOD CELL COUNT 2.74 mill/uL (4.7-6.1); RED CELL DISTRIBUTION WIDTH 16.5 % (11.6-14.6); WHITE BLOOD COUNT 7.7 x1000/uL (4.5-11.0)
[2023-12-17 18:34] LABS: DIFFERENTIAL COMMENT 1
[2023-12-17 18:40] LABS: CALCIUM 7.7 mg/dL (8.7-10.4)
[2023-12-17 18:44] LABS: CREATININE 2.3 mg/dL (0.6-1.3)
[2023-12-17 19:14] LABS: POTASSIUM 6.5 mEq/L (3.5-5.1)
[2023-12-17 20:01] LABS: ANISOCYTOSIS 1+; PLATELET ESTIMATE DECREASED
[2023-12-17] MEDS: CEFEPIME 2GM/100ML 100 ML IV SCH (20:49)
[2023-12-17] MEDS: SODIUM POLYSTYRENE SULFONATE 15 G/60 ML BOT PO NR (22:00)
[2023-12-18] VITALS (8 sets, daily range): BP systolic 125–143; BP diastolic 85–91; PULSE 68–77; RESP 16–20; TEMP 97–98.7; O2SAT 93–96
[2023-12-18 07:34] LABS: HEMATOCRIT. 28.1 % (42.0-52.0); HEMOGLOBIN. 9.3 g/dL (14.0-18.0); MEAN CORPUSCULAR HEMOGLOBIN 31.4 pg (28.0-32.0); MEAN CORPUSCULAR HGB CONC 33.2 g/dL (31.0-37.0); MEAN CORPUSCULAR VOLUME 94.5 fL (80.0-94.0); MEAN PLATELET VOLUME 9.9 fl (7.4-10.4); PLATELET 107 x1000/uL (130-400); RED BLOOD CELL COUNT 2.97 mill/uL (4.7-6.1); RED CELL DISTRIBUTION WIDTH 16.5 % (11.6-14.6); WHITE BLOOD COUNT 9.5 x1000/uL (4.5-11.0)
[2023-12-18 08:03] LABS: DIFFERENTIAL COMMENT 1
[2023-12-18 08:04] LABS: CALCIUM 8.2 mg/dL (8.7-10.4)
[2023-12-18 08:08] LABS: CREATININE 2.6 mg/dL (0.6-1.3)
[2023-12-18 08:17] LABS: POTASSIUM 6.5 mEq/L (3.5-5.1)
[2023-12-18] MEDS ORDERED: ALBUTEROL (0.5%) 2.5MG/0.5ML NEB HHN NR (08:30)
[2023-12-18] MEDS: CALCIUM GLUCONATE 1GM PREMIX 50 ML IV SCH (09:12)
[2023-12-18] MEDS: SODIUM BICARBONATE 8.4% 1 MEQ/ML 50ML SYR IV NR ×3 (09:12→22:09)
[2023-12-18] MEDS: INSULIN REGULAR (HUMULIN R) 300UNITS/3ML VIAL IV NR ×3 (09:14→22:10)
[2023-12-18] MEDS: SODIUM POLYSTYRENE SULFONATE 15 G/60 ML BOT PO NR (11:08)
[2023-12-18 13:45] LABS: CALCIUM 7.9 mg/dL (8.7-10.4)
[2023-12-18 13:50] LABS: CREATININE 2.5 mg/dL (0.6-1.3)
[2023-12-18 14:02] LABS: POTASSIUM 6.2 mEq/L (3.5-5.1)
[2023-12-18] MEDS: DEXTROSE 50% WATER 50ML SYRINGE IV NR ×2 (15:15→22:09)
[2023-12-18 20:14] LABS: CALCIUM 7.8 mg/dL (8.7-10.4)
[2023-12-18 20:18] LABS: CREATININE 2.5 mg/dL (0.6-1.3)
[2023-12-18 20:29] LABS: POTASSIUM 6.2 mEq/L (3.5-5.1)
[2023-12-18 23:03] LABS: GIANT PLATELETS FEW; PLATELET ESTIMATE NORMAL
[2023-12-18 23:04] LABS: OVALOCYTES 1+; TEAR DROP CELLS 1+
[2023-12-19] VITALS (11 sets, daily range): BP systolic 139–161; BP diastolic 92–103; PULSE 76–86; RESP 18–20; TEMP 97.5–98.9; O2SAT 97
[2023-12-19] MEDS: DEXT 10% WATER 1,000 ML IV SCH (06:04)
[2023-12-19 06:07] LABS: HEMATOCRIT. 26.3 % (42.0-52.0); MEAN CORPUSCULAR HGB CONC 34.2 g/dL (31.0-37.0); MEAN CORPUSCULAR VOLUME 93.5 fL (80.0-94.0); MEAN PLATELET VOLUME 9.3 fl (7.4-10.4); PLATELET 113 x1000/uL (130-400); POTASSIUM 5.2 mEq/L (3.5-5.1); RED BLOOD CELL COUNT 2.81 mill/uL (4.7-6.1); RED CELL DISTRIBUTION WIDTH 16.8 % (11.6-14.6); WHITE BLOOD COUNT 8.2 x1000/uL (4.5-11.0)
[2023-12-19 06:09] LABS: CALCIUM 8.2 mg/dL (8.7-10.4)
[2023-12-19 06:13] LABS: CREATININE 2.5 mg/dL (0.6-1.3)
[2023-12-19 06:27] LABS: DIFFERENTIAL COMMENT 1
[2023-12-19] MEDS: CEFEPIME 2GM/100ML 100 ML IV SCH (08:19)
[2023-12-19] MEDS: SODIUM POLYSTYRENE SULFONATE 15 G/60 ML BOT PO NR (09:00)
[2023-12-19] MEDS ORDERED: ALBUTEROL (0.5%) 2.5MG/0.5ML NEB HHN NR (09:30)
[2023-12-19] MEDS ORDERED: DEXT 10% WATER 1,000 ML IV SCH (10:00)
[2023-12-19 12:18] LABS: ANISOCYTOSIS 1+; PLATELET ESTIMATE DECREASED
[2023-12-19] MEDS: HYDRALAZINE HCL 25MG TABLET PO SCH (13:02)
[2023-12-19] MEDS ORDERED: DEXTROSE 50% WATER 50ML SYRINGE IV PRN (15:15)
[2023-12-19] MEDS: INSULIN LISPRO 100 UNITS/ML SUBCUT SCH (15:48)
[2023-12-19] MEDS ORDERED: BLOOD SUGAR DIAGNOSTIC STRIP TEST SCH (17:40)
[2023-12-19] MEDS: ACETAMINOPHEN 325MG TABLET PO PRN (21:29)
[2023-12-20] VITALS (9 sets, daily range): BP systolic 146–159; BP diastolic 80–100; PULSE 76–88; RESP 18–20; TEMP 96.6–98.9; O2SAT 97
[2023-12-20 06:35] LABS: BASOPHILS % 0.5 % (0.0-2.0); EOSINOPHILS % 3.1 % (0.0-5.0); HEMATOCRIT. 25.8 % (42.0-52.0); HEMOGLOBIN. 8.7 g/dL (14.0-18.0); LYMPHOCYTES % 13.8 % (20.0-50.0); MEAN CORPUSCULAR HEMOGLOBIN 31.4 pg (28.0-32.0); MEAN CORPUSCULAR HGB CONC 33.6 g/dL (31.0-37.0); MEAN CORPUSCULAR VOLUME 93.3 fL (80.0-94.0); MEAN PLATELET VOLUME 9.2 fl (7.4-10.4); MONOCYTES % 11.6 % (2.0-8.0); PLATELET 119 x1000/uL (130-400); RED BLOOD CELL COUNT 2.77 mill/uL (4.7-6.1); RED CELL DISTRIBUTION WIDTH 16.3 % (11.6-14.6); WHITE BLOOD COUNT 6.4 x1000/uL (4.5-11.0)
[2023-12-20 06:40] LABS: CARBON DIOXIDE 20 mEq/L (21-32); CHLORIDE 113 mEq/L (98-107); SODIUM 140 mEq/L (136-145)
[2023-12-20 06:45] LABS: CREATININE 2.4 mg/dL (0.6-1.3)
[2023-12-20 06:46] LABS: GLUCOSE 171 mg/dL (70-105); UREA NITROGEN BLOOD 35 mg/dL (9-23)
[2023-12-20 06:48] LABS: PHOSPHORUS 5.4 mg/dL (2.5-4.9)
[2023-12-20] MEDS: INSULIN REGULAR (HUMULIN R) 300UNITS/3ML VIAL IV NR (09:05)
[2023-12-20] MEDS: SODIUM POLYSTYRENE SULFONATE 15 G/60 ML BOT PO NR (11:02)
[2023-12-20] MEDS: SODIUM BICARBONATE 8.4% 1 MEQ/ML 50ML SYR IV NR (11:02)
[2023-12-20] MEDS: DEXTROSE 50% WATER 50ML SYRINGE IV NR (11:02)
[2023-12-20] MEDS: CALCIUM GLUCONATE 1GM PREMIX 50 ML IV NR (11:03)
[2023-12-20] MEDS: HYDRALAZINE HCL 50MG TABLET PO SCH (15:51)
[2023-12-20 16:42] LABS: POTASSIUM 5.7 mEq/L (3.5-5.1)
[2023-12-20 16:43] LABS: CALCIUM 8.1 mg/dL (8.7-10.4)
[2023-12-20 16:48] LABS: CREATININE 2.3 mg/dL (0.6-1.3)
[2023-12-20] MEDS: MAGNESIUM 2 G PREMIX 50 ML IV NR (21:21)
[2023-12-21] VITALS: BP 140/87; PULSE 86; RESP 18; TEMP 97.9
[2023-12-21 04:00] VITALS: BP 141/90; PULSE 78; RESP 18; TEMP 97.5
[2023-12-21 07:17] LABS: BASOPHILS % 0.7 % (0.0-2.0); EOSINOPHILS % 3.7 % (0.0-5.0); HEMATOCRIT. 25.2 % (42.0-52.0); HEMOGLOBIN. 8.3 g/dL (14.0-18.0); LYMPHOCYTES % 17.4 % (20.0-50.0); MEAN CORPUSCULAR HEMOGLOBIN 31.4 pg (28.0-32.0); MEAN CORPUSCULAR HGB CONC 33.1 g/dL (31.0-37.0); MEAN CORPUSCULAR VOLUME 94.7 fL (80.0-94.0); MEAN PLATELET VOLUME 8.8 fl (7.4-10.4); MONOCYTES % 11.5 % (2.0-8.0); NEUTROPHILS % 66.7 % (40.0-76.0); PLATELET 130 x1000/uL (130-400); RED BLOOD CELL COUNT 2.66 mill/uL (4.7-6.1); RED CELL DISTRIBUTION WIDTH 16.4 % (11.6-14.6); WHITE BLOOD COUNT 5.1 x1000/uL (4.5-11.0)
[2023-12-21 07:43] LABS: CALCIUM 8.3 mg/dL (8.7-10.4); CARBON DIOXIDE 20 mEq/L (21-32); CHLORIDE 114 mEq/L (98-107); POTASSIUM 5.6 mEq/L (3.5-5.1); SODIUM 140 mEq/L (136-145)
[2023-12-21 07:49] LABS: CREATININE 2.2 mg/dL (0.6-1.3); GLUCOSE 109 mg/dL (70-105); UREA NITROGEN BLOOD 33 mg/dL (9-23)
[2023-12-21 07:51] LABS: PHOSPHORUS 4.8 mg/dL (2.5-4.9)
[2023-12-21] MEDS: ALBUTEROL (0.5%) 2.5MG/0.5ML NEB HHN NR (10:30)
[2023-12-21] MEDS: SODIUM POLYSTYRENE SULFONATE 15 G/60 ML BOT PO NR (10:59)
[2023-12-21] MEDS ORDERED: AMLO10TA80 MT (12:03)
[2023-12-21] MEDS ORDERED: CARV12.545 MT (12:03)
[2023-12-21] MEDS ORDERED: FLUT1DIS3 INH (12:03)
[2023-12-21] MEDS ORDERED: ALBU18HF2 IH (12:03)
[2023-12-21 12:40] VITALS: PULSE 76; RESP 18; O2SAT 93
[2023-12-21 15:26] VITALS: BP 128/81; PULSE 78; TEMP 98; O2SAT 100
[2023-12-21] MEDS ORDERED: CEFEPIME 2GM/100ML 100 ML IV SCH (21:00)
== END 2023-12-21 18:21 | disposition home or self-care (01) | DRG 720 ==
LOC: ER 08:02 → EDBEDREQ 08:34 → MICUNO 12:21 → EDBEDREQ 12:25 → EDBEDREQSVC 12:25 → EDBEDREQTM 12:26 → ER 14:00 → 7WST 12-16 18:11
PROVIDERS: ADMIT Internal Medicine; ATTEND Internal Medicine
DX: A41.9 Sepsis, unspecified organism (principal); J96.01 Acute respiratory failure with hypoxia; I21.4 Non-ST elevation (NSTEMI) myocardial infarction; R65.21 Severe sepsis with septic shock; E11.10 Type 2 diabetes mellitus with ketoacidosis without coma; D69.6 Thrombocytopenia, unspecified; J18.9 Pneumonia, unspecified organism; I47.10 Supraventricular tachycardia, unspecified; I11.0 Hypertensive heart disease with heart failure; I50.22 Chronic systolic (congestive) heart failure; N17.9 Acute kidney failure, unspecified; E87.5 Hyperkalemia; J43.9 Emphysema, unspecified; D64.9 Anemia, unspecified; E78.5 Hyperlipidemia, unspecified; Z96.659 Presence of unspecified artificial knee joint; F17.210 Nicotine dependence, cigarettes, uncomplicated; J44.0 Chronic obstructive pulmonary disease with (acute) lower respiratory infection; Z85.118 Personal history of other malignant neoplasm of bronchus and lung; Z92.21 Personal history of antineoplastic chemotherapy; Z92.3 Personal history of irradiation
CPT/HCPCS: 36415; 36600; 71045; 76770; 78580; 80048; 80061; 80305; 80320; 81003; 82010; 82375; 82550; 82553; 82607; 82728; 82746; 82805; 82962; 83036; 83540; 83550; 83605; 83735; 83880; 84100; 84145; 84439; 84443; 84480; 84484; 85025; 85379; 86850; 86900; 86920; 87070; 87106; 93005; 93306; 93970; 94640; 97166; 99291; C9113; J0360; J0610; J0692; J0696; J1650; J1815; J2270; J2405; J2543; J3475; J3490; J7030; J7042; J7050; P9016; A4315; G0480

== ENCOUNTER 2024-01-25 22:25 | Emergency (ER) | payer MEDICAID, OTHER ==
[~2024-01-25] VITALS: Ht 185.4 cm; Wt 64.0 kg
[~2024-01-25 22:25] MED LIST changes: +ALBU18HF2 IH; +AMLO10TA80 MT; +CARV12.545 MT; +FLUT1DIS3 INH; -INSU100I28 SQ; -INSU100I32 SQ; -LEVO-65 MT; -METF-416 MT
[2024-01-25 22:38] VITALS: O2SAT 96
[2024-01-25 23:32] LABS: HEMATOCRIT. 29.4 % (42.0-52.0); HEMOGLOBIN. 9.3 g/dL (14.0-18.0); LYMPHOCYTES % 8.6 % (20.0-50.0); MEAN CORPUSCULAR HEMOGLOBIN 30.6 pg (28.0-32.0); MEAN CORPUSCULAR HGB CONC 31.6 g/dL (31.0-37.0); MEAN CORPUSCULAR VOLUME 96.8 fL (80.0-94.0); MEAN PLATELET VOLUME 8.2 fl (7.4-10.4); MONOCYTES % 7.6 % (2.0-8.0); NEUTROPHILS % 83.8 % (40.0-76.0); PLATELET 348 x1000/uL (130-400); RED BLOOD CELL COUNT 3.04 mill/uL (4.7-6.1); RED CELL DISTRIBUTION WIDTH 17.5 % (11.6-14.6); WHITE BLOOD COUNT 4.6 x1000/uL (4.5-11.0)
[2024-01-25 23:36] LABS: CHLORIDE 104 mEq/L (98-107); POTASSIUM 4.4 mEq/L (3.5-5.1); SODIUM 136 mEq/L (136-145)
[2024-01-25 23:37] LABS: CARBON DIOXIDE 21 mEq/L (21-32)
[2024-01-25 23:38] LABS: CALCIUM 7.6 mg/dL (8.7-10.4)
[2024-01-25 23:42] LABS: CREATININE 2.4 mg/dL (0.6-1.3)
[2024-01-25 23:43] LABS: UREA NITROGEN BLOOD 68 mg/dL (9-23)
[2024-01-25 23:44] LABS: TROPONIN I HIGH SENSITIVITY 34 ng/L (3.0-53)
[2024-01-25 23:48] LABS: GLUCOSE 626 mg/dL (70-105)
[2024-01-26] MEDS: INSULIN REGULAR (HUMULIN R) 1000UNITS/10ML VIAL SUBCUT NR (00:15)
[2024-01-26] MEDS: FUROSEMIDE 40MG/4ML VIAL IVP NR (00:15)
[2024-01-26] MEDS: ASPIRIN 81MG TABLET PO NR (00:15)
[2024-01-26] MEDS: ASPIRIN 81MG TABLET PO ONE (01:24)
[2024-01-26] MEDS: SODIUM CHLORIDE 0.9% 1,000 ML IV ONE (01:30)
[2024-01-26] MEDS: FUROSEMIDE 20MG/2ML VIAL IVP ONE (01:35)
[2024-01-26 01:54] LABS: TROPONIN I HIGH SENSITIVITY 33 ng/L (3.0-53)
[2024-01-26] MEDS: INSULIN REGULAR (HUMULIN R) UD 100 UNITS/ML SYR SUBCUT ONE (01:59)
[2024-01-26] MEDS ORDERED: HYDRALAZINE 20MG/ML VIAL IV PRN (05:45)
[2024-01-26 06:02] VITALS: PULSE 86; RESP 18
[2024-01-26] MEDS: ALBUTEROL (0.5%) 2.5MG/0.5ML NEB HHN NR (06:02)
[2024-01-26 06:15] VITALS: BP 180/107; PULSE 80; RESP 18; TEMP 98
== END 2024-01-26 08:31 | disposition left against medical advice (07) ==
LOC: ER 22:25 → EDBEDREQ 01-26 00:08 → 5WST 01-26 01:02 → UNDOADMIN 01-26 01:02 → EDBEDREQTM 01-26 01:13 → EDBEDREQ 01-26 01:13
DX: I11.0 Hypertensive heart disease with heart failure (principal); I50.9 Heart failure, unspecified; E11.65 Type 2 diabetes mellitus with hyperglycemia
CPT/HCPCS: 80048; 83880; 85025; 84484 ×2; 36415 ×2; 71045; 94640; 93005; 99285; 82962; 96361; 96372; 96374; Z7610 ×6; J1940 ×2; J1815; J7030